=== PATIENT | female | born 1955 ===

== ENCOUNTER 2018-07-11 10:52 | Outpatient (CLI) | payer OTHER ==
[~2018-07-11] VITALS: Ht 121.9 cm; Wt 56.2 kg
== END 2018-07-11 11:15 | disposition home or self-care (01) ==
LOC: OFIC 805 10:52
DX: H91.8X2 Other specified hearing loss, left ear (principal); H90.42 Sensorineural hearing loss, unilateral, left ear, with unrestricted hearing on the contralateral side

== ENCOUNTER 2018-08-22 10:56 | Outpatient (CLI) | payer OTHER ==
[~2018-08-22] VITALS: Ht 121.9 cm; Wt 56.2 kg
== END 2018-08-22 11:16 | disposition home or self-care (01) ==
LOC: OFIC 805 10:56
DX: H91.8X2 Other specified hearing loss, left ear (principal); H90.A21 Sensorineural hearing loss, unilateral, right ear, with restricted hearing on the contralateral side; H70.11 Chronic mastoiditis, right ear